=== PATIENT | female | born 1995 | race Caucasian/White ===

== ENCOUNTER → 2016-12-19 | Day surgery (SDC) | payer OTHER ==
[~2016-12-19] VITALS: Ht 154.9 cm; Wt 72.6 kg
[~2016-12-19] MED LIST: ACETAMINOPH W/CODEINE #3 TAB UD PO PRN; BUPIVACAINE/EPIN 0.5% 30 ML VIAL As Ordered ONE; HYDROmorphone HCL 1 MG/ML SYRINGE (J1170) IV PRN; LIDOCAINE 2% INJ 100 MG/5 ML SDV (FOR ANES.) As Ordered ONE; LIDOCAINE W/EPINEPHRINE 1% 20ML VIAL As Ordered ONE; LR 1,000 ML IV SCH; METOCLOPRAMIDE INJ 10MG/2ML VIAL (J2765) IV PRN; MIDAZOLAM INJ 2 MG/2 ML VIAL (J2250) As Ordered ONE; MORPHINE 10 MG/ML 1ML VIAL IV PRN; ONDANSETRON 4MG/2ML VIAL (J2405) As Ordered ONE; ONDANSETRON 4MG/2ML VIAL (J2405) IV PRN; PERCOCET 5MG/325MG TAB PO PRN; PROPOFOL 200 MG/20 ML VIAL As Ordered ONE; SUCCINYLCHOLINE 100 MG/5 ML SYRINGE (J0330) As Ordered ONE; dexameTHASONE 4 MG/ML 1ML VIAL (J1100) As Ordered ONE; fentaNYL 100 MCG/2 ML INJECTION (J3010) As Ordered ONE; fentaNYL 100 MCG/2 ML INJECTION (J3010) IV PRN
[2016-12-19 11:49] LABS: CONTROL LINE UCG INT CTR LINE PRESENT
[2016-12-19 15:00] VITALS: BP 134/71
--- NOTE | 2016-12-19 23:21 | RO ---
DATE OF PROCEDURE: 12/19/2016 PREPROCEDURE DIAGNOSIS: Recurrent tonsillitis. POSTPROCEDURE DIAGNOSIS: Recurrent tonsillitis. PROCEDURE: Tonsillectomy. SURGEON: Dr. Hamilton Felder BARTENDER SERVER: ANESTHESIA: DESCRIPTION OF PROCEDURE: Under general anesthesia with the patient intubated, a Bravo-Joe mouth gag was inserted. The tonsil area was infiltrated with lidocaine and epinephrine. Using Coblator setting of 6 and 4, the tonsil was dissected free from its bed on both sides. The base and apex and other areas were cauterized with a setting of 4 on the Coblator. No blood loss. The patient tolerated the procedure well. The patient was extubated and transferred to the recovery room in excellent condition. Nasogastric tube was passed to suction the upper esophagus prior to the termination of the procedure.
== END | disposition home or self-care (01) ==
LOC: M SDC 09:35
PROVIDERS: ATTEND Otolaryngology
DX: J35.01 Chronic tonsillitis (principal); Z88.0 Allergy status to penicillin; Z88.1 Allergy status to other antibiotic agents; Z88.8 Allergy status to other drugs, medicaments and biological substances
CPT/HCPCS: 42826; 84703; 88302; J0330; J1100; J2250; J2405; J3010